=== PATIENT | male | born 1965 | race Caucasian/White ===

== ENCOUNTER 2017-01-27 09:34 | Emergency (ER) | payer SELFPAY ==
[~2017-01-27] VITALS: Ht 175.3 cm; Wt 78.0 kg
[~2017-01-27 09:34] MED LIST: CIPR500T4 PO
[2017-01-27 09:39] VITALS: BP 142/82; PULSE 86; RESP 20; TEMP 98.1; O2SAT 99
[2017-01-27] MEDS ORDERED: IBUP1TAB7 PO (10:26)
--- NOTE | 2017-01-27 10:27 | PD ---
HPI Chief Complaint: Injury Time Seen by Provider: 10:00 Travel History International Travel<30 days: No Contact w/Intl Traveler<30days: No Traveled to known affect area: No History of Present Illness HPI 52-year-old male here with tailbone pain after he fell backwards in a seated position 4 days ago. Patient reports he tripped over his cat in the middle of the night which caused the fall. He denies head injury or loss of consciousness. He has pain in his tailbone. Denies low back pain. Denies blood in the stool. Denies incontinence. Denies paresthesia or weakness of the lower extremity is. He has pain with sitting on hard surfaces. Symptom severity is moderate. PFSH Past Medical History Medical History: Denies Significant Hx Immunizations Current: Yes Tetanus Vaccination: < 5 Years Past Surgical History Other Surgery: Yes (RIGHT WRIST) Social History Alcohol Use: Yes (NIGHTLY) Tobacco Use: Yes (1 PPD) Substance Use: No Allergies-Medications (Allergen,Severity, Reaction): Coded Allergies: aspirin (Verified Allergy, Severe, EYE REDNESS/SWELLING, 01/27/17) penicillin G (Verified Allergy, Unknown, UNKNOWN, 01/27/17) PT DENIES ALLERGY, STATES NOT ALLERGIC Reported Meds & Prescriptions Reported Meds & Active Scripts Active No Active Prescriptions or Reported Medications Review of Systems Except as stated in HPI: all other systems reviewed are Neg Physical Exam Narrative GENERAL: Alert male no distress SKIN: Warm and dry. HEAD: Normocephalic. Atraumatic CARDIOVASCULAR: Regular rate and rhythm without murmurs, gallops, or rubs. RESPIRATORY: Breath sounds equal bilaterally. No accessory muscle use. GASTROINTESTINAL: Abdomen soft, non-tender, nondistended. MUSCULOSKELETAL: No cyanosis, or edema. Strength and sensation. BACK: Tenderness over the coccyx. No crepitus felt. The lumbar spine is nontender. Without obvious deformity. No CVA tenderness. Data Data Last Documented VS Vital Signs Date Time Temp Pulse Resp B/P (MAP) Pulse Ox O2 Delivery O2 Flow Rate FiO2 01/27/17 09:39 98.1 86 20 142/82 (102) 99 MDM Medical Decision Making Medical Screen Exam Complete: Yes Emergency Medical Condition: Yes Differential Diagnosis COCCYX FX, LUMBAR FX, CONTUSION Narrative Course 52 YEAR OLD MALE WITH tailbone pain after fall. He has no lumbar spine tenderness. No blood in stool. Normal neurologic exam. He has generalized tenderness to the coccyx region. No crepitus felt. He did for coccyx contusion versus fracture. He is requesting a prescription for ibuprofen 800. Diagnosis Primary Impression: Coccyx contusion Qualified Codes: S30.0XXA - Contusion of lower back and pelvis, initial encounter Referrals: [facility] Additional Instructions: Follow-up with her doctor. Return if he developed new or worsening symptoms. Scripts Ibuprofen (Ibuprofen) 800 Mg Tab 800 MG PO Q6HR Y for PAIN, #40 TAB 0 Refills Prov: Massiel Thrasher 01/27/17 Disposition: 01 DISCHARGE HOME Condition: Stable Massiel Thrasher Jan 27, 2017 10:27
[2017-01-27] MEDS ORDERED: KETOROLAC TROMETHAMINE 60 MG/2 ML (IM) VIAL IM ONE (10:45)
== END 2017-01-27 10:42 | disposition home or self-care (01) ==
LOC: PHED 09:34
DX: S30.0XXA Contusion of lower back and pelvis, initial encounter (principal); W01.0XXA Fall on same level from slipping, tripping and stumbling without subsequent striking against object, initial encounter
CPT/HCPCS: 99283; J1885